=== PATIENT | male | born 1960 | race Caucasian/White ===

== ENCOUNTER 2018-12-08 11:42 | Emergency (ER) | payer SELFPAY ==
[~2018-12-08] VITALS: Ht 177.8 cm; Wt 108.9 kg
== END 2018-12-08 13:48 | disposition home or self-care (01) ==
LOC: ED 11:42
DX: S93.401A Sprain of unspecified ligament of right ankle, initial encounter (principal); X50.1XXA Overexertion from prolonged static or awkward postures, initial encounter; Y93.89 Activity, other specified; Y92.89 Other specified places as the place of occurrence of the external cause; Y99.8 Other external cause status

== ENCOUNTER 2023-08-24 13:56 | Inpatient (IN) | payer OTHER ==
[~2023-08-24] VITALS: Ht 154.9 cm; Wt 103.6 kg
[2023-08-24 14:05] VITALS: BP 137/70
[2023-08-24 14:27] LABS: BASO % 0.3 % (0.0-1.0); EOS # 0.1 10*3/uL (0.0-0.4); EOS % 0.5 % (1.0-4.0); HEMATOCRIT 41.8 % (42.0-52.0); LYMPH # 1.5 10*3/uL (1.3-4.4); LYMPH % 15.5 % (27.0-41.0); MEAN CELL VOLUME 90.7 fl (80.0-94.0); MEAN CORPUSCULAR HGB 29.1 pg (27.0-31.0); MEAN CORPUSCULAR HGB CONC 32.1 g/dl (33.0-37.0); MEAN PLATELET VOLUME 8.8 fl (9.6-12.3); MONO # 1.1 10*3/uL (0.1-1.0); MONO % 11.2 % (3.0-9.0); NEUT # 6.8 10*3/uL (2.3-7.9); NEUT % 72.2 % (47.0-73.0); PLATELET COUNT AUTOMATED 157 10*3/uL (130-400); RED BLOOD COUNT 4.61 10*6/uL (4.50-5.90); WHITE BLOOD COUNT 9.5 10*3/uL (4.8-10.8)
[2023-08-24] MEDS ORDERED: THEOPHYLLINE300 M2 PO (14:34)
[2023-08-24] MEDS ORDERED: LIPITOR40 MG PO (14:36)
[2023-08-24] MEDS ORDERED: KLOR-CON M2020 ME1 PO (14:36)
[2023-08-24] MEDS ORDERED: TAMSULOSIN HCL0.4 MG PO (14:37)
[2023-08-24] MEDS ORDERED: ASPIRIN ADULT L81 M2 PO (14:38)
[2023-08-24] MEDS ORDERED: FINASTERIDE5 M1 PO (14:38)
[2023-08-24] MEDS ORDERED: SEPTDS PO (14:40)
[2023-08-24 14:41] LABS: ACT PARTIAL THROMBO TIME 26.5 SECONDS (20.0-32.1)
[2023-08-24] MEDS ORDERED: ZEGERID 40 MG1 EACH PO (14:41)
[2023-08-24] MEDS ORDERED: SODIUM CHLORIDE 0.9% 100 ML BAG IV ONE (14:50)
[2023-08-24] MEDS ORDERED: IOHEXOL 350 MG/ML 100 ML VIAL IV ONE (14:50)
[2023-08-24 14:54] LABS: ALKALINE PHOSPHATASE 87 U/L (46-116); BUN 9 mg/dl (9-23); CHLORIDE 98 mmol/L (98-107); POTASSIUM 3.8 mmol/L (3.4-5.1); TOTAL PROTEIN 7.3 gm/dL (6.0-8.0)
[2023-08-24 14:57] LABS: SGPT/ALT < 7 U/L (5-49)
[2023-08-24] MEDS ORDERED: SODIUM CHLORIDE 0.9% 1,000 ML IV SCH (15:00)
[2023-08-24 16:13] LABS: BILIRUBIN Negative (Negative); BLOOD Negative (Negative); CLARITY Clear (Clear); COLOR Yellow (Yellow); GLUCOSE Negative (Negative); KETONE Negative (Negative); LEUKO ESTERASE Negative (Negative); NITRITE Negative (Negative)
[2023-08-24 16:14] LABS: PH 8.5 (4.5-8.0)
[2023-08-24 16:19] LABS: EPITHELIAL CELLS 0-2; WBC 0-2 wbc/hpf (0-5)
[2023-08-24 16:20] LABS: RBC 0-2 rbc/hpf (0-2)
[2023-08-24] MEDS ORDERED: AZITHROMYCIN 250 ML IV ONE (16:25)
[2023-08-24] MEDS ORDERED: Ceftriaxone Sodium 1 GM/10 ML SYR IV ONE (16:25)
[2023-08-24 17:04] VITALS: BP 135/70
[2023-08-24] MEDS ORDERED: Acetaminophen/Hydrocodone 5 MG/325 MG TABLET PO PRN (17:20)
[2023-08-24] MEDS ORDERED: TEMAZEPAM 15 MG CAP PO PRN (17:20)
[2023-08-24] MEDS ORDERED: BISACODYL 5 MG TAB PO PRN (17:20)
[2023-08-24] MEDS ORDERED: Albuterol Sulf/Ipratropium 3 ML VIAL NEB SCH (18:10)
[2023-08-24] MEDS ORDERED: SODIUM CHLORIDE 0.9% 1,000 ML IV ONE (19:45)
[2023-08-24 21:18] VITALS: BP 132/75
[2023-08-24 21:40] VITALS: BP 156/92
[2023-08-24] MEDS ORDERED: OMEPRAZOLE40 MG PO (21:54)
[2023-08-25] MEDS ORDERED: Melatonin 5 MG TABLET PO PRN (00:55)
[2023-08-25 05:58] LABS: BASO % 0.3 % (0.0-1.0); EOS # 0.1 10*3/uL (0.0-0.4); EOS % 0.7 % (1.0-4.0); HEMATOCRIT 36.9 % (42.0-52.0); LYMPH % 13.4 % (27.0-41.0); MEAN CELL VOLUME 91.8 fl (80.0-94.0); MEAN CORPUSCULAR HGB 29.1 pg (27.0-31.0); MEAN CORPUSCULAR HGB CONC 31.7 g/dl (33.0-37.0); MONO # 0.8 10*3/uL (0.1-1.0); MONO % 10.1 % (3.0-9.0); NEUT # 5.7 10*3/uL (2.3-7.9); NEUT % 75.1 % (47.0-73.0); PLATELET COUNT AUTOMATED 142 10*3/uL (130-400); RED BLOOD COUNT 4.02 10*6/uL (4.50-5.90); RED CELL DISTRI WIDTH 13.1 % (0-14.5); WHITE BLOOD COUNT 7.6 10*3/uL (4.8-10.8)
[2023-08-25] MEDS ORDERED: OMEPRAZOLE 20 MG CAP PO SCH (06:00)
[2023-08-25 06:20] LABS: ALKALINE PHOSPHATASE 77 U/L (46-116); CHLORIDE 101 mmol/L (98-107); CHOLESTEROL 100 mg/dL (<200); LDL CHOLESTEROL 58 mg/dL (9-159); POTASSIUM 4.5 mmol/L (3.4-5.1); TOTAL PROTEIN 6.3 gm/dL (6.0-8.0); TRIGLYCERIDES 49 mg/dl (<150)
[2023-08-25 06:40] LABS: BUN < 5 mg/dl (9-23); SGPT/ALT < 7 U/L (5-49)
[2023-08-25 07:04] LABS: VITAMIN D, 25-HYDROXY 25.5 ng/mL (30-100)
[2023-08-25 08:00] VITALS: BP 130/75
[2023-08-25] MEDS ORDERED: ASPIRIN ENTERIC COATED 81 MG TAB PO SCH (10:00)
[2023-08-25] MEDS ORDERED: methylPREDNISolone sod succ 40 MG VIAL IV SCH ×2 (10:00→22:00)
[2023-08-25] MEDS ORDERED: Enoxaparin Sodium 40 MG/0.4 ML SYR SC SCH (10:00)
[2023-08-25] MEDS ORDERED: ATORVASTATIN CALCIUM 40 MG TABLET PO SCH (10:00)
[2023-08-25] MEDS ORDERED: Vitamin D 1,000 IU TAB (25 MCG) PO SCH (10:00)
[2023-08-25] MEDS ORDERED: Tamsulosin Hydrochloride 0.4 MG CAP PO SCH (10:00)
[2023-08-25] MEDS ORDERED: FINASTERIDE 5 MG TAB PO SCH (10:00)
[2023-08-25] MEDS ORDERED: SODIUM CHLORIDE 0.9% 1,000 ML IV ONE (10:05)
[2023-08-25 12:00] VITALS: BP 130/49
[2023-08-25 14:45] VITALS: BP 112/56
[2023-08-25] MEDS ORDERED: Ceftriaxone Sodium 1 GM in SYRINGE INFUSION 10 ML IV SCH (15:00)
[2023-08-25 16:00] VITALS: BP 120/64
[2023-08-25] MEDS ORDERED: AZITHROMYCIN 250 ML IV SCH (16:00)
[2023-08-25] MEDS ORDERED: METOPROLOL SUCCINATE XR 25 MG TAB PO ONE (17:10)
[2023-08-25] MEDS ORDERED: Levalbuterol Hydrochloride 0.63 MG VIAL NEB SCH (17:14)
[2023-08-25 20:00] VITALS: BP 116/61
[2023-08-26] VITALS: BP 120/63
[2023-08-26 06:42] LABS: BASO % 0.3 % (0.0-1.0); EOS # 0.2 10*3/uL (0.0-0.4); EOS % 1.6 % (1.0-4.0); HEMATOCRIT 38.7 % (42.0-52.0); LYMPH # 1.2 10*3/uL (1.3-4.4); MEAN CELL VOLUME 91.9 fl (80.0-94.0); MEAN CORPUSCULAR HGB 29.2 pg (27.0-31.0); MEAN CORPUSCULAR HGB CONC 31.8 g/dl (33.0-37.0); MEAN PLATELET VOLUME 8.9 fl (9.6-12.3); MONO # 1.1 10*3/uL (0.1-1.0); MONO % 11.4 % (3.0-9.0); NEUT # 7.3 10*3/uL (2.3-7.9); NEUT % 74.2 % (47.0-73.0); PLATELET COUNT AUTOMATED 142 10*3/uL (130-400); RED BLOOD COUNT 4.21 10*6/uL (4.50-5.90); RED CELL DISTRI WIDTH 13.2 % (0-14.5); WHITE BLOOD COUNT 9.9 10*3/uL (4.8-10.8)
[2023-08-26 07:11] LABS: BUN 8 mg/dl (9-23); CHLORIDE 100 mmol/L (98-107); POTASSIUM 4.5 mmol/L (3.4-5.1)
[2023-08-26 08:00] VITALS: BP 132/76
[2023-08-26] MEDS ORDERED: methylPREDNISolone sod succ 40 MG VIAL IV SCH (10:00)
[2023-08-26 12:00] VITALS: BP 112/62
[2023-08-26] MEDS ORDERED: PERFLUTREN PROTEIN-A MICROSPHR 3 ML VIAL IV ONE (13:25)
[2023-08-26 16:00] VITALS: BP 122/67
[2023-08-26 20:00] VITALS: BP 128/63
[2023-08-27] VITALS: BP 112/57
[2023-08-27 06:24] LABS: BASO % 0.2 % (0.0-1.0); EOS % 0.2 % (1.0-4.0); LYMPH # 1.5 10*3/uL (1.3-4.4); LYMPH % 14.9 % (27.0-41.0); MEAN CELL VOLUME 92.7 fl (80.0-94.0); MEAN CORPUSCULAR HGB 29.3 pg (27.0-31.0); MEAN CORPUSCULAR HGB CONC 31.6 g/dl (33.0-37.0); MONO # 1.3 10*3/uL (0.1-1.0); MONO % 12.8 % (3.0-9.0); NEUT # 7.1 10*3/uL (2.3-7.9); NEUT % 71.6 % (47.0-73.0); PLATELET COUNT AUTOMATED 154 10*3/uL (130-400); RED BLOOD COUNT 3.99 10*6/uL (4.50-5.90); RED CELL DISTRI WIDTH 13.1 % (0-14.5); WHITE BLOOD COUNT 9.9 10*3/uL (4.8-10.8)
[2023-08-27 06:51] LABS: BUN 11 mg/dl (9-23); CHLORIDE 100 mmol/L (98-107); POTASSIUM 4.1 mmol/L (3.4-5.1)
[2023-08-27 08:00] VITALS: BP 126/73
[2023-08-27] MEDS ORDERED: Regadenoson 0.4 MG/5 ML SYR IV ONE (10:46)
[2023-08-27 12:00] VITALS: BP 120/65
[2023-08-27 16:00] VITALS: BP 117/53
[2023-08-27 20:00] VITALS: BP 140/77
[2023-08-28] VITALS: BP 118/60
[2023-08-28 06:08] LABS: BUN 9 mg/dl (9-23); CHLORIDE 99 mmol/L (98-107); POTASSIUM 4.3 mmol/L (3.4-5.1)
[2023-08-28 08:00] VITALS: BP 129/58
[2023-08-28] MEDS ORDERED: ISOSORBIDE MONONITRATE 30 MG TAB PO SCH (09:40)
[2023-08-28 12:00] VITALS: BP 135/66; BP 155/56
== END 2023-08-28 12:00 | disposition short-term general hospital (02) | DRG 720 ==
LOC: ED 13:56 → EDHOLD 17:09 → 4E 17:09
PROVIDERS: Nurse Practitioner Family; Student in an Organized Health Care Education/Training Program; ADMIT Internal Medicine; ATTEND Internal Medicine
PROC: 4A02XM4 Measurement of Cardiac Total Activity, External Approach (ICD-10-PCS; principal; 2023-08-27)
PROC: 3E073KZ Introduction of Other Diagnostic Substance into Coronary Artery, Percutaneous Approach (ICD-10-PCS; 2023-08-27)
DX: A41.9 Sepsis, unspecified organism (principal); J96.21 Acute and chronic respiratory failure with hypoxia; J15.69 Pneumonia due to other Gram-negative bacteria; J44.1 Chronic obstructive pulmonary disease with (acute) exacerbation; J44.0 Chronic obstructive pulmonary disease with (acute) lower respiratory infection; I27.20 Pulmonary hypertension, unspecified; R65.20 Severe sepsis without septic shock; R73.9 Hyperglycemia, unspecified; D64.9 Anemia, unspecified; E55.9 Vitamin D deficiency, unspecified; N40.0 Benign prostatic hyperplasia without lower urinary tract symptoms; I25.10 Atherosclerotic heart disease of native coronary artery without angina pectoris; E78.2 Mixed hyperlipidemia; E66.01 Morbid (severe) obesity due to excess calories; I08.1 Rheumatic disorders of both mitral and tricuspid valves; Z79.82 Long term (current) use of aspirin; Z68.38 Body mass index [BMI] 38.0-38.9, adult; Z79.899 Other long term (current) drug therapy